=== PATIENT | female | born 1990 | race African-American/Black ===

== ENCOUNTER 2017-03-02 13:17 | Emergency (ER) | payer SELFPAY ==
[2017-03-02 13:41] LABS: BASOPHILS 0.4 % (0.0-2.0); EOSINOPHILS 0.8 % (0-7); HEMATOCRIT 36.5 % (36.0-48.0); HEMOGLOBIN 11.9 g/dL (12-16); LYMPHOCYTES 32.4 % (15-50); MCH 30.9 pg (26.0-34.0); MCHC 32.6 g/dL (31.0-37.0); MCV 94.8 fL (80.0-100.0); MEAN PLATELET VOLUME 10.2 fL (7.4-10.4); MONOCYTES 6.4 % (2-11); PLATELET COUNT 192 10x3/uL (130-400); RBC 3.85 10x6/uL (4.00-5.40); RDW 13.8 % (11.5-14.5); WBC 4.8 10x3/uL (4.8-10.8)
[2017-03-02 14:02] LABS: HCG SERUM NEGATIVE (NEGATIVE)
[2017-03-02 14:47] LABS: APPEARANCE HAZY (CLEAR); BACTERIA NONE SEEN /hpf (NONE SEEN); BILIRUBIN NEGATIVE (NEGATIVE); COLOR YELLOW (YELLOW); EPITHELIAL CELLS RARE /hpf (0-5); GLUCOSE NEGATIVE (NEGATIVE); KETONE NEGATIVE (NEGATIVE); LEUKOCYTE ESTERASE NEGATIVE (NEGATIVE); NITRITE NEGATIVE (NEGATIVE); PROTEIN NEGATIVE (NEGATIVE); SPECIFIC GRAVITY 1.015 (1.005-1.020); UROBILINOGEN NORMAL (NORMAL); WHITE CELLS - URINE 0-5 /hpf (0-5)
== END 2017-03-02 15:04 | disposition home or self-care (01) ==
LOC: D.ER 13:17
PROVIDERS: Emergency Medicine; Nurse Practitioner Acute Care
DX: O03.9 Complete or unspecified spontaneous abortion without complication (principal); F17.200 Nicotine dependence, unspecified, uncomplicated

== ENCOUNTER 2018-08-06 09:38 | Emergency (ER) | payer OTHER ==
[~2018-08-06] VITALS: Ht 165.1 cm; Wt 61.4 kg
[2018-08-06 09:43] VITALS: BP 110/54; Ht 165.1 cm; Wt 61.4 kg
[2018-08-06 10:11] LABS: BASOPHILS 0 % (0-2); EOSINOPHILS 0.2 % (0-7); HEMATOCRIT 33.6 % (36.0-48.0); IMMATURE GRANULOCYTES 0.2 % (0-5); LYMPHOCYTES 17.7 % (15-50); MCH 27.9 pg (26.0-34.0); MCHC 32.7 g/dL (31.0-37.0); MCV 85.3 fL (80.0-100.0); MEAN PLATELET VOLUME 10.1 fL (7.4-10.4); MONOCYTES 4.8 % (2-11); NEUTROPHILS 77.1 % (40-80); PLATELET COUNT 196 10x3/uL (130-400); RBC 3.94 10x6/uL (4.00-5.40); RDW 14.2 % (11.5-14.5); WBC 6.4 10x3/uL (4.8-10.8)
[2018-08-06 10:24] LABS: HCG SERUM POSITIVE (NEGATIVE)
[2018-08-06 10:27] LABS: ALBUMIN 3.3 g/dL (3.4-5.0); ALKALINE PHOSPHATASE 61 U/L (46-116); ALT (SGPT) 16 U/L (10-68); BILIRUBIN - TOTAL 0.33 mg/dL (0.2-1.3); CALC OSMOLALITY 262 mosm/kg (275-300); CALCIUM 8.4 mg/dL (8.5-10.1); CARBON DIOXIDE 24.4 mmol/L (21.0-32.0); CHLORIDE - SERUM 101 mmol/L (98-107); CREATININE - SERUM 0.5 mg/dL (0.6-1.3); GLUCOSE 81 mg/dL (74-106); POTASSIUM - SERUM 3.7 mmol/L (3.5-5.1); PROTEIN - SERUM 7.3 g/dL (6.4-8.2); SODIUM 133 mmol/L (136-145); UREA NITROGEN 7 mg/dL (7-18); eGFR NON AFRICAN AMERICAN > 90 mL/min (90-120)
[2018-08-06 10:47] LABS: APPEARANCE CLEAR (CLEAR); BILIRUBIN NEGATIVE (NEGATIVE); COLOR DK YELLOW (YELLOW); GLUCOSE NEGATIVE (NEGATIVE); KETONE NEGATIVE (NEGATIVE); NITRITE NEGATIVE (NEGATIVE); PROTEIN NEGATIVE (NEGATIVE); SPECIFIC GRAVITY 1.005 (1.005-1.020); UROBILINOGEN NORMAL (NORMAL)
[2018-08-06 10:48] LABS: BACTERIA FEW /hpf (NONE SEEN); MUCUS >1+ /lpf (NONE SEEN); RED CELLS - URINE OCC /hpf (0-5)
[2018-08-08 22:06] LABS: CHLAMYDIA TRACHOMATIS, NAA Negative (Negative)
== END 2018-08-06 11:55 | disposition home or self-care (01) ==
LOC: D.ER 09:38
PROVIDERS: Family Medicine
DX: O20.9 Hemorrhage in early pregnancy, unspecified (principal); Z3A.14 14 weeks gestation of pregnancy

== ENCOUNTER 2019-01-23 04:50 | Inpatient (IN) | payer OTHER ==
[~2019-01-23] VITALS: Ht 165.1 cm; Wt 70.8 kg
--- NOTE | ~2019-01-23 | DS ---
PATIENT:TAMMIE JIMÉNEZ :86 MEDICAL RECORD: [id number] DISCHARGE SUMMARY ADMISSION DATE: 01/23/19 DISCHARGE DATE: 01/24/19 DATE OF ADMISSION: 01/23/2019. DATE OF DISCHARGE: 01/24/2019. ADMISSION DIAGNOSIS: Active labor. DISCHARGE DIAGNOSIS: Mother delivered at term. PROCEDURE: Vaginal delivery. ATTENDING: Jm Zarate MD HISTORY OF PRESENT ILLNESS: See the H&P in the chart. SUMMARY OF HOSPITALIZATION: The patient was admitted to the hospital and labored and delivered without incident. The patient was doing well at the time of discharge with mild to moderate lochia. Uterus is firm below the level of the umbilicus. The patient will be discharged with standard precautions. I have counseled the patient in regards to contraception. She will use [id number] medications for any discomforts. TRANSINT:[id number] Voice Confirmation ID: [id number] DOCUMENT ID: [id number] JM ZARATE MD CC: [id number] DICTATION DATE: 01/24/19 1502 FREIGHT AND PASSENGER AGENT: 01/25/19 0705 DIS IN 01/24/19 [facility] [address] [place] [address]
--- NOTE | ~2019-01-23 | OP ---
PATIENT NAME: TAMMIE JIMÉNEZ MEDICAL RECORD: [id number] :86 LOCATION:[id number] ADMISSION DATE:01/23/19 SURGEON: KLAUS DE MD DATE OF OPERATION: 01/23/2019 PREDELIVERY DIAGNOSIS: Active labor at 38 weeks. POSTDELIVERY DIAGNOSIS: Mother delivered at 38 weeks. PROCEDURE: Vaginal delivery. ATTENDING: Klaus De MD ANESTHETIC: Continuous lumbar epidural. IRONMOLDER: Yanni Buenrostro. FINDINGS: Viable female infant, DEVAUGHN presentation, Apgars 9 and 9, weight 7 pounds 4 ounces. Placenta spontaneous and intact. No lacerations. ESTIMATED BLOOD LOSS: 300 cc. DISPOSITION: Mother and infant are recovered in the room. TRANSINT:[id number] Voice Confirmation ID: [id number] DOCUMENT ID: [id number] KLAUS DE MD CC: [id number] DICTATION DATE: 01/23/1928 HUMAN FACTORS ENGINEER: 01/23/19 0949 ADM IN [facility] [address] [place] [address]
[2019-01-23 05:54] VITALS: BP 106/60; Ht 165.1 cm; Wt 70.8 kg
[2019-01-23 06:00] LABS: UDS - AMPHET NEGATIVE QUAL (NEGATIVE); UDS - BARB NEGATIVE QUAL (NEGATIVE); UDS - BENZO NEGATIVE QUAL (NEGATIVE); UDS - COCAINE NEGATIVE QUAL (NEGATIVE); UDS - OPIATE NEGATIVE QUAL (NEGATIVE); UDS - PCP NEGATIVE QUAL (NEGATIVE); UDS - THC POSITIVE QUAL (NEGATIVE)
[2019-01-23 06:12] LABS: HEMOGLOBIN 7.8 g/dL (12-16); MCH 23.9 pg (26.0-34.0); MCV 79.5 fL (80.0-100.0); MEAN PLATELET VOLUME 11.4 fL (7.4-10.4); RBC 3.27 10x6/uL (4.00-5.40); RDW 16.2 % (11.5-14.5); WBC 7.4 10x3/uL (4.8-10.8)
[2019-01-23 06:29] LABS: APPEARANCE CLEAR (CLEAR); BILIRUBIN NEGATIVE (NEGATIVE); COLOR YELLOW (YELLOW); GLUCOSE NEGATIVE (NEGATIVE); KETONE NEGATIVE (NEGATIVE); NITRITE NEGATIVE (NEGATIVE); PROTEIN NEGATIVE (NEGATIVE); SPECIFIC GRAVITY 1.005 (1.005-1.020); UROBILINOGEN NORMAL (NORMAL)
--- NOTE | 2019-01-23 13:50 | NUR ---
PT REQUESTS PAIN MEDICATION, STATES "MY BACK HAS BEEN HURTING SINCE I'VE BEEN IN THE BED FOR SO LONG". PT DENIES SOB, DIFFICULTY BREATHING, DENIES NAUSEA. PT REPORTS LOW BACK PAIN, STATES "I THINK IT MAY BE FROM MY EPIDURAL". FAMILY AT BEDSIDE, BONDING WITH . EXTRA PILLOWS PLACED BEHIND BACK FOR COMFORT. WARM BLANKET PROVIDED FOR COMFORT, WELL. PT DENIES ALL OTHER NEEDS AT THIS TIME.
[2019-01-23 16:23] VITALS: BP 123/60
--- NOTE | 2019-01-23 16:23 | NUR ---
SITTING UP IN BED WATCHING TV. HOLDING INFANT IN ARMS. DENIES NEEDING ANYTHING 2/10 ACHING AT EPIDURAL SITE. ENCOURAGE SHOWER WHEN READY THE WARM WATER MAY HELP. U/3 FIRM MIDLINE, RUBRA SMALL ON PERIPADS. DENIES INCREASED BLEEDING. VOIDED 600 ML URINE IN [place] HAT. TO CALL IF ANYTHING IS NEEDED. SIDE RAILS UP X 2, CALL LIGHT IN REACH.
--- NOTE | 2019-01-23 17:19 | NUR ---
TALKED WITH PHARMACIST ABOUT AND SODIUM FERRIC GLUCONATE. INFORMATION RECEIVED REGARDING MAX SUGGESTED EXPOSURE TO BENZYL ALCOHOL PRESERVATIVE- CALCULATED OUT TO BE 350 MG/KG. PER PHARMACIST INFANT MAY BE EXPOSED TO 180 MG WHICH IS LOWER THAN THE "GASPING SYNDROME" ASSOCIATED WITH BENSYL ALCOHOL DOSES OVER 99MG/KG/DAY. INFORMATION GIVEN TO PATIEN TO READ REGARDING AND SODIUM FERRIC GLUCONATE. PT ALSO INFORMED THAT Herbie MONTELONGO RN NURSERY, TALKED TO DR WOLF, BUSINESS PROCESS ASSOCIATE WHO SAYS IT IS OK TO BREASTFEED AND RECEIVE THIS IRON THERAPY. INSTRUCTED PATIENT TO LET RN WHAT SHE WOULD LIKE TO DO. WILL ALSO TALK TO TELEVISION ANALYZER TO SEE IF ALTERNATIVE TREATMENT IS AVAILABLE SHOULD PT DECIDE SHE DOES NOT WANT THIS IV TREATMENT.
--- NOTE | 2019-01-23 17:39 | NUR ---
PT OPTED TO RECEIVE IV IRON THERAPY AFTER READING INFORMATION GIVEN AND RECIEVING VERBAL INFORMATION. IV PATENT LEFT FA WITHOUT EDEMA OR ERRYTHEMA. DISCUSSED POSSIBLE SIDE EFFECTS OF MEDICATION. INSTRUCTED NOT TO GET OOB WITHOUT ASSISTANCE DURING TRANSFUSION. TO REPORT SOB, ITCHING, CHEST PAIN OR ANYTHING THAT FEELS UNUSUAL. VERBALIZED UNDERSTANDING. NS STARTED AT 50 ML/HR PER ALARIS PUMP PRIOR TO IRON THERAPY TO CHECK FOR IV SITE PATENCY. INFUSING WITHOUT DIFFICULTY.
--- NOTE | 2019-01-23 17:57 | NUR ---
IV INFUSING WITHOUT DIFFICULTY, NO SIGNS OF INFILTRATION. VISITORS IN ROOM. IN ROOM. SITTING UP IN BE EATING DINNER. FRESH WATER GIVEN. NO ADDITIONAL REQUESTS. SIDE RAILS UP 2, CALL LIGHT IN REACH.
--- NOTE | 2019-01-23 18:17 | NUR ---
SITTING UP IN BED . IV INFUSING WITHOUT COMPLICATIONS. NO SIGNS OF ADVERSE REACTION OR INFILTRATION. TO CALL IF ANYTHING IS NEEDED.
[2019-01-23 19:00] VITALS: BP 120/72
--- NOTE | 2019-01-23 19:00 | NUR ---
LYING ON BACK WITH HOB AT 45 DEGREES. PT. CHEERFUL AND DENIES ANY DIZZINESS , NAUSEA, SOB. IV OF SODIUM FERRIC GULONATE COMPLEX IN SUCROSE INJECTION INFUSING IN LT FOREARM IV SITE AT 135CC/HR VIA PUMP. NO REDNESS , EDEMA NOR COMPLAINT OF PAIN AT INFUSION SITE. PT. STATES AT THIS TIME SHE IS PAIN FREE ALTHOUGH WITH ABD. CRAMPING IS NOTED. EXPLAINED REASON FOR CRAMPING WITH AND BENEFITS FOR THE CRAMPING. PT. STATES UNDERSTANDING AND RELATES THAT SHE REMEMBERS THE CRAMPING FROM PAST INFANTS, WELL. 2ND IV SITE NOTED IN RT FOREARM WHICH IS SALINE LOCKED. NO REDNESS NOR EDEMA AT THE SITE. FUNDUS FIRM U/3 AND LOCHIA RUBRA SCANT TO MOD. PT.REPORTS VOIDING WITHOUT DIFFICULTY. BREATH SOUNDS CLEAR AND BOWEL SOUNDS AUDIBLE. IN ROOM AND BEING HELD BY VISITOR ON Apprion. PT. DENIES ANY NEEDS AT THIS TIME. DISUSSED WITH PT. INCREASED NUTRITIONAL NEEDS WITH AND ALSO DISCUSSED USE OF VITAMINS WITH IRON AND ALSO IRON RICH FOODS AND EXAMPLES OF THOSE FOODS GIVEN. PT. REPORTS THAT ANEMIA IS NOT A NEW FINDING FOR HER. PT. VOICED READINESS TO CHANGE POSSIBLE FOOD CHOICES TO ADDRESS HER ANEMIA. FRIEND ON [email or web address] ALSO ENCOURAGING PT. ON WHICH FOODS THAT SHE COULD SUBSTITUTE TO HELP MEET HER NEEDS.
--- NOTE | 2019-01-23 20:05 | NUR ---
IRON INFUSION COMPLETED AND SALINE INFUSION ON TO FLUSH LINE. [employer] WORKER IN ROOM TALKING WITH PT. PT. CHEERFUL AND LAUGHING. SITTING UP IN BED.
--- NOTE | 2019-01-23 20:16 | NUR ---
IRON INFUSION AND FLUSH COMPLETED. PT. SITTING UP IN BED TALKING WITH VISITOR.
--- NOTE | 2019-01-23 20:28 | NUR ---
AT PRESENT. C/O ABD. CRAMPING AND BACKPAIN AT EPIDURAL SITE. RATES A 6 OF 10 ON PAIN SCALE. TORODOL GIVEN ORDERED. ICE WATER PROVIDED.
--- NOTE | 2019-01-23 21:12 | NUR ---
LYING ON RT SIDE WITH LIGHTS IN ROOM DIMMED. RATES PAIN A 4 OF 10 ON PAIN SCALE. INFANT IN OPEN CRIB AT BEDSIDE WITH EYES CLOSED AND RESPIRATIONS UNLABORED. FRIEND LYING ON SOFA.
--- NOTE | 2019-01-23 22:55 | NUR ---
LYING ON LT SIDE WITH EYES CLOSED. RESPIRATIONS UNLABORED. IN OPEN CRIB AT BEDSIDE.
--- NOTE | 2019-01-24 00:38 | NUR ---
PT. HOLDING INFANT . DENIES ANY NEEDS AT THIS TIME.
--- NOTE | 2019-01-24 02:55 | NUR ---
LYING ON LT SIDE WITH EYES CLOSED. RESPIRATIONS UNLABORED. IN OPEN CRIB AT BEDSIDE.
--- NOTE | 2019-01-24 04:37 | NUR ---
PT. LYING WITH EYES CLOSED AND RESPIRATIONS UNLABORED. IN OPEN CRIB AT BEDSIDE.
[2019-01-24 05:38] LABS: BASOPHILS 0.2 % (0-2); EOSINOPHILS 0.6 % (0-7); HEMATOCRIT 30.3 % (36.0-48.0); IMMATURE GRANULOCYTES 0.2 % (0-5); LYMPHOCYTES 15.5 % (15-50); MCV 80.6 fL (80.0-100.0); MEAN PLATELET VOLUME 11.3 fL (7.4-10.4); MONOCYTES 7.8 % (2-11); NEUTROPHILS 75.7 % (40-80); PLATELET COUNT 139 10x3/uL (130-400); RBC 3.76 10x6/uL (4.00-5.40); RDW 15.9 % (11.5-14.5); WBC 8.2 10x3/uL (4.8-10.8)
[2019-01-24 05:56] LABS: HEMOGLOBIN 9.4 g/dL (12-16)
--- NOTE | 2019-01-24 06:03 | NUR ---
PT. SITTING UP IN BED WITH LYING BETWEEN LEGS. PT. DRINKING COLA AND TALKING WITH FRIEND. CHEERFUL AND LAUGHING. REPORTS HAS SOME BACK DISCOMFORT.
[2019-01-24 07:15] VITALS: BP 117/48
--- NOTE | 2019-01-24 07:32 | NUR ---
ASSUMED CARE OF THIS PT. SITTING UP IN BED HOLDING . SHIFT ASSESSMENT COMPLETED. NO ABNORMALITIES NOTED. CRAMPING BACKACH IS BETTER /. HAS NOT SHOWERED, STATES "I'M LAZY". ANTICIPATED DC HOME TODAY. , RH POSTIVE, RUBELLA IMMUNE, NON-SMOKER, SAYS SHE RECEIVED FLU AND WHOOPING COUGH (TDAP) VACCINE DURING . VISITOR X 1 IN ROOM, SIDE RAILS UP X 2, CALL LIGHT IN REACH. TO CALL IF ANYTHING IS DESIRED.
--- NOTE | 2019-01-24 09:23 | NUR ---
SITTING IN BED TALKING TO NURSERY RN. IN CRIB, VISITOR X 1 IN ROOM. NO CURRENT REQUESTS. TO CALL IF ANYTHING IS NEEDED.
--- NOTE | 2019-01-24 10:51 | NUR ---
SITTING IN BED. INFANT IN ARMS. NO REQUESTS.
--- NOTE | 2019-01-24 13:10 | NUR ---
SITTING UP IN BED TALKING TO VISITOR. INFANT IN ARMS. SAYS PAIN IS 4/10 LOW BACK. DECLINES PAIN MEDICATION AT THIS TIME. INFORMED THAT MD WILL BE IN AROUND 3:00PM. VERBALIZED UNDERSTANDING. PER [place] [facility] RECORD, HAD TDAP 09/24/17. WILL NEED BOOSTER IN 2026.
--- NOTE | 2019-01-24 15:09 | NUR ---
DR DE VISITED. DC ORDERS RECEIVED. PT IS NON SMOKER AND DID NOT NEED NICODERM PATCH.
--- NOTE | 2019-01-24 16:05 | NUR ---
DC'D HOME AFTER PROVIDING VERBAL AND WRITTEN DC INSTRUCTIONS TO INCLUDE ROUTINE PP CARE, PP DEPRESSION, S&S INFECTIONS, DANGER SIGNS, /BREASTCARE, TDAP, ANEMIA, MEDICATION ADMINISTRATION INCLUDING PNV. AND F/U. SALINE LOCKS IN RFA AND LFA BOTH DC'D INTACT PRIOR TO DC. DC'D VIA WHEELCHAIR TO CAR, INFANT IN CARSEAT, FAMILY WITH PT. ALL BELONGINGS REMOVED FROM ROOM. NO WRITTEN PRESCRIPTIONS WERE PROVIDED BY DR DE.
[2019-01-26 07:33] LABS: RAPID PLASMA REAGIN Non Reactive (Non Reactive)
== END 2019-01-24 16:05 | disposition home or self-care (01) | DRG 807 ==
LOC: D.LDO 04:50 → D.LD 05:23
PROVIDERS: ADMIT Obstetrics & Gynecology
PROC: 10E0XZZ Delivery of Products of Conception, External Approach (ICD-10-PCS; principal; 2019-01-23)
DX: O99.02 Anemia complicating childbirth (principal); Z37.0 Single live birth; Z3A.38 38 weeks gestation of pregnancy

== ENCOUNTER 2019-11-07 12:06 | Emergency (ER) | payer OTHER ==
[~2019-11-07] VITALS: Ht 165.1 cm; Wt 56.8 kg
[2019-11-07 12:26] VITALS: Ht 165.1 cm; Wt 56.8 kg
[2019-11-07 12:48] LABS: HCG URINE NEGATIVE (NEGATIVE)
[2019-11-07 12:51] LABS: APPEARANCE HAZY (CLEAR); BILIRUBIN NEGATIVE (NEGATIVE); COLOR YELLOW (YELLOW); GLUCOSE NEGATIVE (NEGATIVE); KETONE SMALL mg/dL (NEGATIVE); NITRITE POSITIVE (NEGATIVE); PROTEIN TRACE mg/dL (NEGATIVE); SPECIFIC GRAVITY 1.015 (1.005-1.020)
[2019-11-07 12:52] LABS: BACTERIA MANY /hpf (NEGATIVE); EPITHELIAL CELLS 0-5 /hpf (0-5); RED CELLS - URINE 0-5 /hpf (0-5); WHITE CELLS - URINE 25-50 /hpf (NEGATIVE)
[2019-11-07] MEDS ORDERED: MACROBID100 MG PO (13:26)
[2019-11-07] MEDS ORDERED: KEFLEX500 MG PO (13:26)
[2019-11-07 14:07] VITALS: BP 128/67
== END 2019-11-07 14:08 | disposition home or self-care (01) ==
LOC: D.ER 12:06
PROVIDERS: Emergency Medicine
DX: N39.0 Urinary tract infection, site not specified (principal)

== ENCOUNTER 2020-09-20 01:22 | Outpatient (CLI) | payer OTHER ==
[2019-11-07 12:26] VITALS: BMI 20.8
[~2020-09-20 01:22] MED LIST: KEFLEX500 MG PO; MACROBID100 MG PO
[2020-09-23] MEDS ORDERED: BUSPAR10 MG PO (00:25)
== END 2020-09-20 09:07 | disposition home or self-care (01) ==
LOC: D.LDO 01:22
PROVIDERS: ATTEND Student in an Organized Health Care Education/Training Program
DX: O26.899 Other specified pregnancy related conditions, unspecified trimester (principal); N93.9 Abnormal uterine and vaginal bleeding, unspecified